=== PATIENT | female | born 1970 | race Caucasian/White ===

== ENCOUNTER 2017-09-18 23:23 | Emergency (ER) | payer BC ==
[2017-09-19] MEDS ORDERED: predniSONE 20 MG TAB ONE (01:15)
== END 2017-09-19 01:18 | disposition home or self-care (01) ==
LOC: ERS 23:23
DX: Z79.899 Other long term (current) drug therapy; E03.9 Hypothyroidism, unspecified; E11.9 Type 2 diabetes mellitus without complications; H20.9 Unspecified iridocyclitis
CPT/HCPCS: 36416; 99283; J7506